=== PATIENT | male | born 1995 | race Caucasian/White ===

== ENCOUNTER 2017-11-22 10:49 | Emergency (ER) | payer SELFPAY ==
[2017-11-22 11:48] VITALS: BP 122/74; TEMP 98.1; O2SAT 100
--- NOTE | 2017-11-22 12:20 | ED.PDOC ---
History of Present Illness - General Chief Complaint: Skin/Abrasion/Tear Stated Complaint: RASH Time Seen by Provider: 11/22/17 12:17 Source: RN notes reviewed Exam Limitations: no limitations Additional Information: 21 YEAR OLD PRESENTS WITH RASH DURATION 2 WEEKS WAS WORKING OUTSIDE WHEN HE STARTED THIS RASH HAS BEEN APPLYING CALAMINE LOTION WITH NO EFFECT THE RASH IS GENERALISED ON THE TRUNK AND EXTREMITIES NO LESIONS ON THE PALM OR FOOT NO ORAL LESIONS - History of Present Illness Timing/Duration: getting worse Severity: moderate Location: none Improving Factors: nothing Allergies/Adverse Reactions: Allergies NO KNOWN ALLERGY Allergy (Verified 03/11/15 13:29) Home Medications: Ambulatory Orders Prednisone [Deltasone] 20 mg PO Q8HRS #60 tab 11/22/17 Review of Systems - Review of Systems Constitutional: States: no symptoms reported EENTM: States: no symptoms reported Respiratory: States: no symptoms reported Cardiology: States: no symptoms reported Gastrointestinal/Abdominal: States: no symptoms reported Genitourinary: States: no symptoms reported Musculoskeletal: States: no symptoms reported Skin: States: no symptoms reported Neurological: States: see HPI Endocrine: States: no symptoms reported Hematologic/Lymphatic: States: no symptoms reported Past Medical History (General) - Patient Medical History Hx Seizures: No Hx Stroke: No Hx Dementia: No Hx Asthma: No Hx of COPD: No Hx Cardiac Disorders: No Hx Congestive Heart Failure: No Hx Pacemaker: No Hx Hypertension: No Hx Thyroid Disease: No Hx Diabetes: No Hx Renal Disease: No Hx Cancer: No Hx of HIV: No Hx Hepatitis C: No Hx MRSA: No Surgical History: no surgical history - Vaccination History Hx Influenza Vaccination: No - Social History Hx Tobacco Use: Yes Hx Chewing Tobacco Use: No Hx Alcohol Use: No Hx Substance Use: No Hx Substance Use Treatment: No Hx Depression: Yes Family Medical History - Family History Mother Family History: Unknown Father Hx Family Asthma: Yes Physical Exam - Physical Exam General Appearance: Alert, Comfortable Eyes, Ears, Nose, Throat Exam: PERRL/EOMI, normal ENT inspection, TMs normal, pharynx normal Neck: non-tender, full range of motion, supple Cardiovascular/Chest: normal peripheral pulses, regular rate, rhythm, no edema, no gallop, no JVD, no murmur, JVD Respiratory: chest non-tender, lungs clear, normal breath sounds Gastrointestinal/Abdominal: normal bowel sounds, non tender, soft, no organomegaly, no pulsatile mass, abnormal bowel sounds Extremity: normal range of motion, non-tender, normal inspection 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 Copy, Patient Portal Self Enrollment Referrals: Leta Henao NP [Primary Care Provider] - 1-2 Weeks Home Medications: Ambulatory Orders Prednisone [Deltasone] 20 mg PO Q8HRS #60 tab 11/22/17
[2017-11-22] MEDS ORDERED: DEXAMETHASONE INJ 10 MG/ML VIAL IM ONE (12:21)
== END 2017-11-22 12:57 | disposition home or self-care (01) ==
LOC: ER 10:49
DX: L23.7 Allergic contact dermatitis due to plants, except food (principal); Z87.891 Personal history of nicotine dependence

== ENCOUNTER 2019-10-07 20:17 | Emergency (ER) | payer SELFPAY ==
[2019-10-07] MEDS ORDERED: LIDOCAINE 1% 10 ML VIAL INJ ONE (20:31)
[2019-10-07] MEDS ORDERED: LIDOCAINE 1% MPF 5 ML VIAL INJ ONE (20:31)
[2019-10-07] MEDS ORDERED: TETANUS,DIPHTHERIA,PERTUSSIS 1 EA SYG IM ONE (20:31)
[2019-10-07] MEDS ORDERED: POVIDONE IODINE 10 % 15 ML UD TOP ONE (20:31)
[2019-10-07] MEDS ORDERED: HYDROcodone 10MG/APAP 325MG 1 EA TAB PO ONE (20:31)
[2019-10-07 20:42] VITALS: BP 169/100; TEMP 99.1; O2SAT 98
--- NOTE | 2019-10-07 20:48 | ED.PDOC ---
History of Present Illness - General Chief Complaint: Lower Extremity Injury Stated Complaint: I got a nail stuck in my leg Time Seen by Provider: 10/07/19 20:21 Source: patient, RN notes reviewed, Vital Signs reviewed Exam Limitations: no limitations - History of Present Illness Initial Comments: This is a 23-year-old male with no significant past medical history presenting to the emergency department with puncture wound to the left lower leg. Patient states he was tearing down a retaining wall made of railroad ties, and when he pulled off a railroad tie a nail stuck in his leg. He reports some localized paresthesias. He is able to walk on the leg. Last Tdap was unknown. Occurred: just prior to arrival Pain - Lower Extremity: moderate: Left Brandon Method of Injury: direct blow Improving Factors: rest Worsening Factors: movement Allergies/Adverse Reactions: Allergies NO KNOWN ALLERGY Allergy (Verified 03/11/15 13:29) Home Medications: Ambulatory Orders Tramadol HCl 50 - 100 mg PO Q6HR PRN #20 tab 10/07/19 Review of Systems - Review of Systems Constitutional: Denies: chills, fever EENTM: States: no symptoms reported Cardiology: States: no symptoms reported Gastrointestinal/Abdominal: States: no symptoms reported Musculoskeletal: States: muscle pain. Denies: joint pain, neck pain Skin: States: lesions. Denies: rash Neurological: States: paresthesia. Denies: headache, numbness Past Medical History (General) - Patient Medical History Hx Seizures: No Hx Stroke: No Hx Dementia: No Hx Asthma: No Hx of COPD: No Hx Cardiac Disorders: No Hx Congestive Heart Failure: No Hx Pacemaker: No Hx Hypertension: No Hx Thyroid Disease: No Hx Diabetes: No Hx Gastroesophageal Reflux: No Hx Renal Disease: No Hx Cancer: No Hx of HIV: No Hx Hepatitis C: No Hx MRSA: No - Vaccination History Hx Tetanus, Diphtheria Vaccination: No Hx Influenza Vaccination: No Hx Pneumococcal Vaccination: No Immunizations Up to Date: No - Social History Hx Tobacco Use: Yes Hx Chewing Tobacco Use: No Hx Alcohol Use: Yes Hx Substance Use: No Hx Substance Use Treatment: No Hx Depression: No - Female History Patient is a Female of Child Bearing Age (10 -59 yrs old): No Family Medical History - Family History Mother Family History: Unknown Father Family History: Unknown Hx Family Asthma: Yes Physical Exam - Physical Exam General Appearance: Alert, Comfortable, No apparent distress Eyes, Ears, Nose, Throat: normal ENT inspection, pharynx normal Neck: full range of motion, supple Cardiovascular/Respiratory: regular rate, rhythm, no M/R/G, normal peripheral pulses, normal breath sounds, no respiratory distress Gastrointestinal/Abdominal: non-tender Back: normal inspection, no vertebral tenderness Thigh/Hip: normal inspection, non-tender, no evidence of injury Leg: lacerations - 2 cm laceration to the anterior aspect of the left brandon, midshaft, other - No bony tenderness, patient reports very mild paresthesia approximately 1 to 2 cm outside the wound, but distal sensation, distal pulses are normal. Cap refill less than 2-second Knee: normal inspection, non-tender Ankle: normal inspection, non-tender, no evidence of injury Foot: normal inspection, non-tender, no evidence of injury Neuro/Tendon: normal sensation, normal motor functions, normal tendon functions Mental Status: alert, oriented x 3 Skin: normal color, warm/dry Progress - Progress Progress: 10/07/19 21:22 Rechecked. Discussed wound care, suture removal in 7 to 10 days. Warnings given to return the emergency room for increased swelling/pain, spreading redness, purulent drainage, fever, or any other concerns. DDX: Fracture, foreign body Gaurang Wilson DO [facility] #[id number] - Results/Orders Results/Orders: Tib-fib x-ray reviewed personally by me at 8:40 PM. No fracture, no foreign body. No obvious bony injury. EXAM DESCRIPTION: Tibia/Fibula,Left, 2 views CLINICAL HISTORY: 23 years Male, puncture wound midshaft anterior tibia COMPARISON: None. FINDINGS: No fracture or dislocation. Soft tissues are unremarkable. IMPRESSION: No acute abnormali ty. Electronically signed by: Clark Cummins MD 10/07/2019 9:05 PM Procedures - Laceration/Wound Repair Left Anterior Calf Wound Length (cm): 3 Wound's Depth, Shape: superficial, irregular Wound Explored: no foreign body removed Irrigated w/ Saline (cc's): 150 Betadine Prep?: Yes Anesthesia: 1% Lidocaine Volume Anesthetic (cc's): 10 Wound Repaired With: sutures Suture Size/Type: 4:0, prolene Number of Sutures: 4 Layer Closure?: No Sterile Dressing Applied?: Yes Splint Applied?: No Sling Applied?: No Departure - Departure Clinical Impression: Laceration of lower leg Qualifiers: Encounter type: initial encounter Laterality: left Qualified Code(s): S81.812A - Laceration without foreign body, left lower leg, initial encounter Disposition: Discharge to Home or Self Care Condition: Good Departure Forms: ED Discharge - Pt. Copy, Patient Portal Self Enrollment Instructions: DI for Leg Pain, Laceration Repair Diet: resume usual diet Activity: increase activity as tolerated Prescriptions: Tramadol HCl 50 - 100 mg PO Q6HR PRN #20 tab PRN Reason: Moderate To Severe Pain Home Medications: Ambulatory Orders Tramadol HCl 50 - 100 mg PO Q6HR PRN #20 tab 10/07/19 Additional Instructions: Watch wound closely for signs of infection. Return to the emergency room immediately for spreading redness, increased pain/swelling, fever, or any other concerns. Sutures need to be removed in 7 to 10 days.
--- NOTE | 2019-10-07 21:06 | RAD ---
EXAM DESCRIPTION: Tibia/Fibula,Left, 2 views CLINICAL HISTORY: 23 years Male, puncture wound midshaft anterior tibia COMPARISON: None. FINDINGS: No fracture or dislocation. Soft tissues are unremarkable. IMPRESSION: No acute abnormality. Electronically signed by: Clark Cummins MD 10/07/2019 9:05 PM CDT
[2019-10-07] MEDS ORDERED: NEOMYCIN-BACITRACIN-POLYMYXIN 0.9 GM UD TOP ONE (21:07)
== END 2019-10-07 21:45 | disposition home or self-care (01) ==
LOC: ER 20:17
DX: S81.812A Laceration without foreign body, left lower leg, initial encounter (principal); F17.200 Nicotine dependence, unspecified, uncomplicated; W45.0XXA Nail entering through skin, initial encounter; Y92.9 Unspecified place or not applicable

== ENCOUNTER 2020-06-11 21:12 | Emergency (ER) | payer SELFPAY ==
--- NOTE | 2020-06-11 21:15 | ED.PDOC ---
History of Present Illness - General Chief Complaint: Chest Pain/ME Stated Complaint: CP Time Seen by Provider: 06/11/20 21:15 Source: patient Exam Limitations: no limitations - History of Present Illness Initial Comments: Patient complains of upper Sternal constant Sharp pain in the chest for the last few months. Pain does not radiate. Patient complains of dyspnea and diapho resis. He admits to drinking 60 ounces of high Alcoholic content beer today. He does this on a regular daily basis. Patient denies abdominal pain. Does complain of nausea and vomiting with 5 Episodes in the last 24 hours. No diarrhea. Patient denies any prior history of hypertension diabetes high cholesterol or coronary disease. He does not report any Venous thromboembolic disease. Timing/Duration: other - 3 months Severity: moderate Improving Factors: nothing Allergies/Adverse Reactions: Allergies NO KNOWN ALLERGY Allergy (Verified 03/11/15 13:29) Home Medications: Ambulatory Orders Tramadol HCl 50 - 100 mg PO Q6HR PRN #20 tab 10/07/19 Ondansetron Odt [Zofran ODT] 4 mg PO Q6H PRN 5 Days #20 tablet 06/11/20 Review of Systems - Review of Systems Constitutional: States: chills, other - No fever EENTM: States: no symptoms reported Respiratory: States: see HPI Cardiology: States: see HPI Gastrointestinal/Abdominal: States: see HPI Musculoskeletal: States: no symptoms reported Skin: States: no symptoms reported Neurological: States: no symptoms reported Endocrine: States: no symptoms reported Hematologic/Lymphatic: States: no symptoms reported Past Medical History (General) - Patient Medical History Hx Seizures: No Hx Stroke: No Hx Dementia: No Hx Asthma: No Hx of COPD: No Hx Cardiac Disorders: No Hx Congestive Heart Failure: No Hx Pacemaker: No Hx Hypertension: No Hx Thyroid Disease: No Hx Diabetes: No Hx Gastroesophageal Reflux: No Hx Renal Disease: No Hx Cancer: No Hx of HIV: No Hx Hepatitis C: No Hx MRSA: No - Vaccination History Hx Tetanus, Diphtheria Vaccination: No Hx Influenza Vaccination: No Hx Pneumococcal Vaccination: No - Social History Hx Tobacco Use: Yes Hx Chewing Tobacco Use: No Hx Alcohol Use: Yes Hx Substance Use: No Hx Substance Use Treatment: No Hx Depression: No Family Medical History - Family History Mother Family History: Unknown Father Family History: Unknown Hx Family Asthma: Yes Physical Exam - Physical Exam General Appearance: Alert, Comfortable, Other - Speech slightly slurred Eye Exam: bilateral normal Ears, Nose, Throat: normal ENT inspection, normal pharynx, other - Moist mucous membranes Neck: non-tender, full range of motion, supple Respiratory: chest non-tender, normal breath sounds Cardiovascular/Chest: regular rate, rhythm, tachycardia Gastrointestinal/Abdominal: normal bowel sounds, non tender, soft Back Exam: normal inspection, no CVA tenderness Extremity: normal range of motion, no pedal edema, no calf tenderness 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 - Results/Orders Results/Orders: Electrocardiogram: Sinus tachycardia, 116/min, otherwise normal tracing. Single view chest x-ray showed no abnormalities. 06/11/20 21:23 Sodium Chloride 0.9% 1000ML [Ns 1000 ml] 1,000 ml IVS ONCE 06/11/20 21:30 EKG STAT Laboratory Results - last 24 hr 06/11/20 06/11/20 06/11/20 21:35 21:35 21:35 WBC 4.3 L RBC 4.52 L Hgb 14.2 Hct 42.5 MCV 94.0 MCH 31.4 H MCHC 33.4 RDW 14.4 Plt Count 193 MPV 6.7 L Absolute Neuts (auto) 1.90 Absolute Lymphs (auto) 1.70 Absolute Monos (auto) 0.60 Absolute Eos (auto) 0.10 Absolute Basos (auto) 0.00 Neutrophils % 43.2 Lymphocytes % 38.7 Monocytes % 14.0 H Eosinophils % 3.3 Basophils % 0.8 PT INR PTT (SP) D-Dimer, Quantitative Sodium 136 Potassium 3.8 Chloride 99 L Carbon Dioxide 26 Anion Gap 14.8 BUN 7 Creatinine 0.73 BUN/Creatinine Ratio 9.6 L Random Glucose 134 H Serum Osmolality 271.9 L Calcium 8.3 L Total Bilirubin 0.4 AST 97 H ALT 64 H Alkaline Phosphatase 91 Serum Total Protein 8.6 H Albumin 4.1 Globulin 4.5 H Albumin/Globulin Ratio 0.9 L Lipase 66 H Ethyl Alcohol 497.90 H* 06/11/20 21:35 WBC RBC Hgb Hct MCV MCH MCHC RDW Plt Count MPV Absolute Neuts (auto) Absolute Lymphs (auto) Absolute Monos (auto) Absolute Eos (auto) Absolute Basos (auto) Neutrophils % Lymphocytes % Monocytes % Eosinophils % Basophils % PT 9.9 INR 1.00 PTT (SP) 26.6 D-Dimer, Quantitative 175.0 Sodium Potassium Chloride Carbon Dioxide Anion Gap BUN Creatinine BUN/Creatinine Ratio Random Glucose Serum Osmolality Calcium Total Bilirubin AST ALT Alkaline Phosphatase Serum Total Protein Albumin Globulin Albumin/Globulin Ratio Lipase Ethyl Alcohol Vital Signs - 24 hr 06/11/20 06/11/20 21:14 22:00 Temperature 98.1 F Pulse Rate [ 134 H 115 H monitor] Respiratory 18 20 Rate Blood Pressure 141/112 126/81 [Left Arm] O2 Sat by Pulse 96 97 Oximetry Departure - Departure Clinical Impression: Alcoholism /alcohol abuse Chest pain Qualifiers: Chest pain type: chest pain on breathing Qualified Code(s): R07.1 - Chest pain on breathing Gastritis Qualifiers: Gastritis type: alcoholic Chronicity: acute Gastritis bleeding: without bleeding Qualified Code(s): K29.20 - Alcoholic gastritis without bleeding Disposition: Discharge to Home or Self Care Condition: Good Departure Forms: ED Discharge - Pt. Copy, Patient Portal Self Enrollment Instructions: DI for Chest Pain, Gastritis (DC), Alcohol Abuse and Alcoholism (DC) Diet: other - Clear liquid diet if vomiting, gradually advance to solid food as tolerated Prescriptions: Ondansetron Odt [Zofran ODT] 4 mg PO Q6H PRN 5 Days #20 tablet PRN Reason: Vomiting Home Medications: Ambulatory Orders Tramadol HCl 50 - 100 mg PO Q6HR PRN #20 tab 10/07/19 Ondansetron Odt [Zofran ODT] 4 mg PO Q6H PRN 5 Days #20 tablet 06/11/20 Additional Instructions: Follow-up with your doctor or substance abuse clinic for assistance With stopping your drinking. Use [id number] Pepcid tablets 20 mg every 12 hours To reduce acid in your stomach and esophageal irritation. If you develop severe shakes, have a seizure, or blackouts then you should return to the emergency department. If you have black or bloody stools return to the emergency department.
[2020-06-11] MEDS ORDERED: SODIUM CHLORIDE 0.9% 1000ML 1,000 ML IVS ONE ×2 (21:23→22:00)
[2020-06-11] MEDS ORDERED: FAMOTIDINE IV PREMIX 20 MG in PREMIX BAG 1 BAG IVPB ONE (21:24)
[2020-06-11] MEDS ORDERED: ONDANSETRON INJ 4 MG/2 ML VIAL IV ONE (21:24)
--- NOTE | 2020-06-11 21:55 | RAD ---
EXAM: XR Chest, 1 View CLINICAL HISTORY: Chest pain TECHNIQUE: Frontal view of the chest. COMPARISON: No relevant prior studies available. FINDINGS: Lungs: No consolidation. Symmetrical vascular pattern. Pleural space: No pneumothorax. No pleural effusion. Heart: Normal cardiac size and configuration. Mediastinum: No abnormality noted. Bones/joints: No osseous destruction or sclerosis noted. IMPRESSION: No abnormality noted. Electronically signed by: Evelin Ag MD 06/11/2020 9:53 PM [employer]ER [employer]PER
[2020-06-11] MEDS ORDERED: SODIUM CHLORIDE 0.9% 1000ML 1,000 ML ONE (22:05)
[2020-06-11 22:41] VITALS: BP 125/80; TEMP 98; O2SAT 99
== END 2020-06-11 22:41 | disposition home or self-care (01) ==
LOC: ER 21:12
DX: R07.1 Chest pain on breathing (principal); K29.20 Alcoholic gastritis without bleeding; R00.0 Tachycardia, unspecified; Z87.891 Personal history of nicotine dependence
CPT/HCPCS: 71045; 80053; 80320; 83690; 85025; 85379; 85610; 85730; 93005; J2405; J3490; J7030